=== PATIENT | female | born 1995 | race Caucasian/White ===

== ENCOUNTER 2021-07-27 20:58 | Emergency (ER) | payer BC ==
--- NOTE | 2021-07-27 21:23 | EDM.PDOC ---
<Mariah George E - Last Filed: 07/27/21 21:50> ED HPI GENERAL MEDICAL PROBLEM - General Chief Complaint: General Stated Complaint: COUGHING,RUNNING NOSE,CONGESTION Time Seen by Provider: 07/27/21 21:11 Source of Information: Reports: Patient History Limitations: Reports: No Limitations - History of Present Illness INITIAL COMMENTS - FREE TEXT/NARRATIVE: HISTORY AND PHYSICAL: History of present illness: Patient is a 26-year-old female who presents to the emergency room with complaints of nasal congestion, cough and shortness of breath x1 week. Patient denies any fever, chills, headache, change in vision, syncope or near syncope, chest pain, and back pain. Denies any abdominal pain, nausea, vomiting, diarrhea, constipation or dysuria. Has not noted any blood in urine or stool. She states she is currently trying to get and states there is a possibility of today. Patient has been eating and drinking appropriately. No recent travel or sick contacts. Review of systems: As per history of present illness and below otherwise all systems reviewed and negative. Past medical history: As per history of present illness and as reviewed below otherwise noncontributory. Surgical history: As per history of present illness and as reviewed below otherwise noncontributory. Social history: See social history for further information Family history: As per history of present illness and as reviewed below otherwise noncontributory. Physical exam: General: Well developed and well nourished 26-year-old female. Alert and orient ated x 3. Nontoxic in appearance and in no acute distress. Vital signs are stable and have been reviewed by me. Nursing notes were reviewed. HEENT: Atraumatic, normocephalic, pupils equal and reactive bilaterally, negative for conjunctival pallor or scleral icterus, mucous membranes moist, TMs normal bilaterally, throat clear, neck supple, nontender, trachea midline. No drooling or trismus noted. No meningeal signs. No hot potato voice noted. Lungs: Clear to auscultation bilaterally. No wheezes, rales, or rhonchi. Chest nontender. Normal work of breathing, no accessory muscles used. Heart: S1S2, regular rate and rhythm without overt murmur, gallops, or rubs. No JVD. No peripheral edema Abdomen: Soft, nondistended, nontender. Normoactive bowel sounds. Negative for masses or costovertebral tenderness. Skin: Intact, warm, dry. No lesions or rashes noted. Hematologic: No petechiae or purpra. Mucosa appropriate color and normal nail bed color and refill. Extremities: Atraumatic, moves all extremities per self without difficulty or deficits, negative for cords or calf pain. Neurovascular unremarkable. Neuro: Awake, alert, oriented. Cranial nerves II through XII unremarkable. Cerebellum unremarkable. Motor and sensory unremarkable throughout. Exam nonfocal. Psychiatric: Mood and affect are appropriate. Normal thought process. Answering questions appropriately. Please note that the patient was seen and evaluated during the 2019 SARS-CoV-2 novel coronavirus pandemic period. Community viral transmission is ongoing at time of this encounter and the emergency department is operating under pandemic response procedures. Medical Decision Making: Patient is a 26-year-old female who presents to the emergency room with complaints of upper respiratory symptoms. Physical exam is unremarkable. Will obtain Covid/influenza screening. We will get a urine and urine as she is attempting to get . If negative will obtain an x-ray Diagnostics: COVID, Influenza Impression: Upper respiratory illness Definitive disposition and diagnosis as appropriate pending reevaluation and review of above. Duration: Week(s): - Related Data Allergies Allergy/AdvReac Type Severity Reaction Status Date / Time Sulfa (Sulfonamide Allergy Shortness Verified 07/27/21 21:42 Antibiotics) of Breath Home Meds: Home Meds . [No Known Home Meds] 07/27/21 [History] ED ROS GENERAL - Review of Systems Review Of Systems: Comprehensive ROS is negative, except as noted in HPI. ED EXAM, GENERAL - Physical Exam Exam: See Below (See dictation) Departure - Departure Disposition: Home, Self-Care 01 Clinical Impression: Upper respiratory infection - Discharge Information Instructions: Viral Respiratory Infection, [id number] Referrals: PCP,None [Primary Care Provider] - Forms: ED Department Discharge Additional Instructions: You were seen and evaluated in ER today for signs and symptoms consistent with a viral upper respiratory infection. Your Covid and influenza test were both negative. Your chest x-ray was normal. Your oxygen level was 98 to 99% on room air here in the ER which is normal. Please make an appointment to follow-up with your family doctor. You can take [id number] guaifenesin or Ольга to help with some of your symptoms. Please return to the ER if you develop any new or concerning symptoms. The following information is given to patients seen in the emergency department who are being discharged to home. This information is to outline your options for follow-up care. We provide all patients seen in our emergency department with a follow-up referral. The need for follow-up, as well as the timing and circumstances, are variable depending upon the specifics of your emergency department visit. If you don't have a primary care physician on staff, we will provide you with a referral. We always advise you to contact your personal physician following an emergency department visit to inform them of the circumstance of the visit and for follow-up with them and/or the need for any referrals to a consulting specialist. The emergency department will also refer you to a specialist when appropriate. This referral assures that you have the opportunity for follow-up care with a specialist. All of these measure are taken in an effort to provide you with optimal care, which includes your follow-up. Under all circumstances we always encourage you to contact your private physician who remains a resource for coordinating your care. When calling for follow-up care, please make the office aware that this follow-up is from your recent emergency room visit. If for any reason you are refused follow-up, please contact the [facility] Emergency Department at and asked to speak to the emergency department charge nurse. [facility] [address] [place] [address] [place] [address] <Johnathon Shaffer - Last Filed: 07/27/21 23:03> ED HPI GENERAL MEDICAL PROBLEM - History of Present Illness INITIAL COMMENTS - FREE TEXT/NARRATIVE: 11 PM: Signout received at 10 PM. Patient's chest x-ray is unremarkable with no evidence of pneumonia. Patient's influenza and Covid test were both negative. Patient is clinically and hemodynamically stable with a pulse ox of 98% on room air. Patient does not appear to be in any acute respiratory distress at this time. Patient's lungs are clear without any wheezing rales or rhonchi. Patient's heart rate with regular rate and rhythm without any murmurs gallops or rubs. Patient will be discharged home with instructions to follow-up with her PCP for further evaluation. Patient symptoms appear to be most consistent with viral upper respiratory infection. Reassessment at the time of disposition demonstrates that the patient is in no acute distress. The patient has remained stable throughout the entire ED visit and is without objective evidence for acute process requiring urgent intervention or hospitalization. The patient is stable for discharge, counseling is provided as documented above, discussed symptomatic treatment and specific conditions for return. I have spoken with the patient/caregiver and discussed todays findings, in addition to providing specific details for the plan of care. Questions are answ ered and there is agreement with the plan. ED ROS GENERAL - Review of Systems Review Of Systems: See Below ED EXAM, GENERAL - Physical Exam Exam: See Below Course - Vital Signs Last Recorded V/S: Last Vital Signs Temp 97.8 F 07/27/21 21:42 Pulse 86 07/27/21 21:42 Resp 18 07/27/21 21:42 BP 103/61 07/27/21 21:42 Pulse Ox 97 07/27/21 21:42 - Orders/Labs/Meds Labs: Laboratory Tests 07/27/21 07/27/21 07/27/21 Range/Units 21:50 21:50 21:50 Urine Color YELLOW Urine Appearance CLEAR Urine pH 6.0 (5.0-8.0) Ur Specific [place] 1.025 (1.001-1.035) Urine Protein NEGATIVE (NEGATIVE) mg/dL Urine Glucose (UA) NEGATIVE (NEGATIVE) mg/dL Urine Ketones TRACE H (NEGATIVE) mg/dL Urine Occult Blood NEGATIVE (NEGATIVE) Urine Nitrite NEGATIVE (NEGATIVE) Urine Bilirubin NEGATIVE (NEGATIVE) Urine Urobilinogen 2.0 H (<2.0) EU/dL Ur Leukocyte Esterase NEGATIVE (NEGATIVE) Urine HCG, Qual NEGATIVE (NEGATIVE) Influenza Type A RNA NEGATIVE (NEGATIVE) Influenza Type B RNA NEGATIVE (NEGATIVE) SARS-CoV-2 RNA ([place]) NEGATIVE (NEGATIVE) Departure - Departure Time of Disposition: 23:02 Condition: Good Sepsis Event Note (ED) - Focused Exam Vital Signs: Vital Signs Temp Pulse Resp BP Pulse Ox 07/27/21 21:42 97.8 F 86 18 103/61 97
[2021-07-27 22:44] LABS: CORONAVIRUS COVID-19 NAA NEGATIVE (NEGATIVE); INFLUENZA A NAA NEGATIVE (NEGATIVE); INFLUENZA B NAA NEGATIVE (NEGATIVE)
--- NOTE | 2021-07-27 22:53 | CR ---
Indication: Cough. Technique: Single-view of the chest. Comparison: None Findings: The heart is normal in size. The lungs are clear. No infiltrate, pleural effusion, or pneumothorax is identified. Impression: No acute cardiopulmonary process Dictated by Roberta Buitrago MD @ 07/27/2021 10:51:42 PM (Electronically Signed)
== END 2021-07-27 23:34 | disposition home or self-care (01) ==
LOC: MW.ED 20:58
DX: J06.9 Acute upper respiratory infection, unspecified (principal); Z88.2 Allergy status to sulfonamides; Z20.822 Contact with and (suspected) exposure to COVID-19
CPT/HCPCS: 0240U; 71045; 81003; 81025; 99283

== ENCOUNTER 2022-04-27 05:04 | Inpatient (IN) | payer BC, OTHER ==
[2022-04-27] MEDS ORDERED: Citric Acid/Sodium Citrate Solution 30 ML Cup PO ONE (05:14)
[2022-04-27] MEDS ORDERED: Sodium Chloride 0.9% 10 ML Syringe FLUSH PRN (05:14)
[2022-04-27] MEDS ORDERED: Sodium Chloride 0.9% 20 ML SDV IV PRN (05:14)
[2022-04-27] MEDS ORDERED: Sodium Chloride 0.9% 2.5 ML Syringe FLUSH PRN (05:14)
[2022-04-27] MEDS ORDERED: Ondansetron 4 MG/2 ML SDV IVPUSH PRN ×4 (05:14→09:27)
[2022-04-27] MEDS ORDERED: ceFAZolin 2 GM in Premix Bag 1 BAG IV ONE (05:14)
[2022-04-27] MEDS ORDERED: Oxytocin/0.9 % Sodium Chloride 30 UNIT/500 ML BAG IV SCH ×2 (05:15→08:45)
[2022-04-27] MEDS ORDERED: Lactated Ringers 1,000 ML IV SCH ×3 (05:15→10:00)
[2022-04-27] MEDS ORDERED: Morphine PF 10 MG/10 ML SDV ONE (07:23)
[2022-04-27] MEDS ORDERED: fentaNYL 100 MCG/2 ML SDV ONE (07:24)
[2022-04-27] MEDS ORDERED: Ondansetron 4 MG/2 ML SDV ONE ×2 (07:47→07:51)
[2022-04-27] MEDS ORDERED: Lidocaine 2% 5 ML SDV ONE (07:47)
[2022-04-27] MEDS ORDERED: Phenylephrine 1% 10 MG/ML SDV ONE (07:49)
[2022-04-27] MEDS ORDERED: ceFAZolin 1 GM Vial ONE ×2 (07:50→07:56)
[2022-04-27] MEDS ORDERED: Ketorolac 30 MG/ML SDV ONE (07:51)
[2022-04-27] MEDS ORDERED: Ropivacaine 0.5% 5 MG/ML 30 ML SDV ONE (07:56)
[2022-04-27] MEDS ORDERED: Methylergonovine 0.2 MG/1 ML Amp IM PRN (08:39)
[2022-04-27] MEDS ORDERED: Oxytocin 10 Units/1 ML SDV IM PRN (08:39)
[2022-04-27] MEDS ORDERED: Lanolin 100% Cream 7 GM Tube TOP PRN (08:39)
[2022-04-27] MEDS ORDERED: Misoprostol 200 MCG Tab RECTAL PRN (08:39)
[2022-04-27] MEDS ORDERED: diphenhydrAMINE 50 MG/ML SDV IVPUSH PRN ×2 (08:39→09:27)
[2022-04-27] MEDS ORDERED: Bisacodyl 10 MG Supp RECTAL PRN (08:39)
[2022-04-27] MEDS ORDERED: Acetaminophen/oxyCODONE 325-5 MG Tab PO PRN ×3 (08:39→09:27)
[2022-04-27] MEDS ORDERED: Tranexamic Acid 1,000 MG in Sodium Chloride 0.9% 100 ML IV PRN (08:39)
[2022-04-27] MEDS ORDERED: Calcium Carbonate 500 MG Tab.Chew CHEW PRN (08:41)
[2022-04-27] MEDS ORDERED: Docusate Sodium 100 MG Cap PO SCH (09:00)
[2022-04-27] MEDS ORDERED: fentaNYL 50 MCG/ML SDV IVPUSH PRN (09:27)
[2022-04-27] MEDS ORDERED: Albuterol 0.083% 2.5 MG/3 ML Neb Soln NEB PRN (09:27)
[2022-04-27] MEDS ORDERED: fentaNYL 100 MCG/2 ML SDV IVPUSH PRN (09:27)
[2022-04-27] MEDS ORDERED: ePHEDrine 50 MG/ML SDV IVPUSH PRN (09:27)
[2022-04-27] MEDS ORDERED: HYDROmorphone 1 MG/ML Syringe IVPUSH PRN (09:27)
[2022-04-27] MEDS ORDERED: Metoclopramide 10 MG/2 ML SDV IVPUSH PRN (09:27)
[2022-04-27] MEDS ORDERED: Naloxone 0.4 MG/ML SDV IVPUSH PRN (09:27)
[2022-04-27] MEDS ORDERED: Morphine 4 MG/ML VIAL IVPUSH PRN (09:27)
[2022-04-27] MEDS ORDERED: Phenylephrine HCl In 0.9% NaCl 1 MG/10 ML Vial IVPUSH SCH (09:30)
[2022-04-27] MEDS: Nalbuphine HCl 10 MG/ 1ML Amp IVPUSH PRN (11:55)
[2022-04-27] MEDS: Ketorolac 30 MG/ML SDV IVPUSH SCH ×2 (15:19→21:36)
[2022-04-27] MEDS: Acetaminophen 1,000 MG in Premix Bag 1 BAG IV SCH ×2 (16:10→23:01)
[2022-04-27] MEDS: Docusate Sodium 100 MG Cap PO SCH (21:37)
[2022-04-27] MEDS: Prenatal Multivitamin with Calcium/Folic Acid/Iron Tab PO SCH (21:46)
[2022-04-27] MEDS: Ascorbic Acid 500 MG Tab PO SCH (21:46)
[2022-04-28] MEDS: Docusate Sodium 100 MG Cap PO SCH ×3 (00:42→21:25)
[2022-04-28] MEDS: Nalbuphine HCl 10 MG/ 1ML Amp IVPUSH PRN (03:47)
[2022-04-28] MEDS: Ketorolac 30 MG/ML SDV IVPUSH SCH ×3 (03:48→16:15)
[2022-04-28] MEDS: Prenatal Multivitamin with Calcium/Folic Acid/Iron Tab PO SCH (09:57)
[2022-04-28] MEDS: Ascorbic Acid 500 MG Tab PO SCH (09:57)
[2022-04-28] MEDS ORDERED: Ketorolac 30 MG/ML SDV ONE (16:09)
[2022-04-28] MEDS: Ibuprofen 800 MG Tab PO PRN (22:40)
[2022-04-29] MEDS: Ibuprofen 800 MG Tab PO PRN (06:27)
[2022-04-29] MEDS: Prenatal Multivitamin with Calcium/Folic Acid/Iron Tab PO SCH (10:33)
[2022-04-29] MEDS: Ascorbic Acid 500 MG Tab PO SCH (10:36)
[2022-04-29] MEDS: Docusate Sodium 100 MG Cap PO SCH (10:37)
== END 2022-04-29 14:00 | disposition home or self-care (01) | DRG 540 ==
LOC: MW.OB 05:04
PROVIDERS: ADMIT Obstetrics & Gynecology; ATTEND Obstetrics & Gynecology
PROC: 10D00Z1 Extraction of Products of Conception, Low, Open Approach (ICD-10-PCS; principal; 2022-04-27)
DX: O99.824 Streptococcus B carrier state complicating childbirth (principal); Z3A.39 39 weeks gestation of pregnancy; Z37.0 Single live birth; O99.02 Anemia complicating childbirth; D64.9 Anemia, unspecified; Z20.822 Contact with and (suspected) exposure to COVID-19
CPT/HCPCS: 01961; 36415; 59025; 64488; 82803; 85014; 85018; 85027; 86592; 86850; 86900; 86901; A9270-GY; J0131; J0690; J1885; J2274; J2300; J2370; J2405; J2795; J3010; J7120; U0002

== ENCOUNTER 2023-07-01 05:11 | Inpatient (IN) | payer BC ==
[2023-07-01] MEDS ORDERED: Lidocaine 2% 5 ML SDV ONE (06:48)
[2023-07-01] MEDS ORDERED: Ondansetron 4 MG/2 ML SDV ONE (06:48)
[2023-07-01] MEDS ORDERED: Dexamethasone 4 MG/ML 5 ML MDV ONE (06:48)
[2023-07-01] MEDS ORDERED: Ketorolac 30 MG/ML SDV ONE (06:49)
[2023-07-01] MEDS ORDERED: ceFAZolin 1 GM Vial ONE (06:49)
[2023-07-01] MEDS ORDERED: Ropivacaine 0.5% 5 MG/ML 30 ML SDV ONE (06:49)
[2023-07-01] MEDS ORDERED: Dexmedetomidine 200 MCG/2 ML SDV ONE (06:49)
[2023-07-01] MEDS ORDERED: Phenylephrine 1% 10 MG/ML SDV ONE (06:49)
[2023-07-01] MEDS ORDERED: Oxytocin 10 Units/1 ML SDV ONE ×2 (06:49→08:15)
[2023-07-01] MEDS ORDERED: fentaNYL 100 MCG/2 ML SDV ONE (06:50)
[2023-07-01] MEDS ORDERED: Water For Injection, Sterile 20 ML ONE (06:50)
[2023-07-01] MEDS ORDERED: Morphine PF 10 MG/10 ML SDV ONE (06:50)
[2023-07-01] MEDS ORDERED: Sodium Chloride 0.9% 2.5 ML Syringe FLUSH PRN (07:07)
[2023-07-01] MEDS ORDERED: Sodium Chloride 0.9% 20 ML SDV IV PRN (07:07)
[2023-07-01] MEDS ORDERED: ceFAZolin 2 GM in Sodium Chloride 0.9% 50 ML IV ONE (07:07)
[2023-07-01] MEDS ORDERED: Sodium Chloride 0.9% 10 ML Syringe FLUSH PRN (07:07)
[2023-07-01] MEDS ORDERED: Citric Acid/Sodium Citrate Solution 30 ML Cup PO ONE (07:07)
[2023-07-01] MEDS ORDERED: Oxytocin/0.9 % Sodium Chloride 30 UNIT/500 ML BAG IV SCH ×2 (07:15→09:00)
[2023-07-01] MEDS ORDERED: Lactated Ringers 1,000 ML IV SCH ×2 (07:15→09:00)
[2023-07-01] MEDS ORDERED: fentaNYL 100 MCG/2 ML SDV IVPUSH PRN (07:22)
[2023-07-01] MEDS ORDERED: fentaNYL 50 MCG/ML SDV IVPUSH PRN (07:22)
[2023-07-01] MEDS ORDERED: Ondansetron 4 MG/2 ML SDV IVPUSH PRN ×3 (07:22→08:55)
[2023-07-01] MEDS ORDERED: Metoclopramide 10 MG/2 ML SDV IVPUSH PRN (07:22)
[2023-07-01] MEDS ORDERED: Acetaminophen/oxyCODONE 325-5 MG Tab PO PRN ×2 (07:22→08:55)
[2023-07-01] MEDS ORDERED: ePHEDrine 50 MG/ML SDV IVPUSH PRN (07:22)
[2023-07-01] MEDS ORDERED: droPERidol 5 MG/2 ML SDV IVPUSH PRN (07:22)
[2023-07-01] MEDS ORDERED: Naloxone 0.4 MG/ML SDV IVPUSH PRN (07:22)
[2023-07-01] MEDS ORDERED: Albuterol 0.083% 2.5 MG/3 ML Neb Soln NEB PRN (07:22)
[2023-07-01] MEDS ORDERED: HYDROmorphone 1 MG/ML Syringe IVPUSH PRN (07:22)
[2023-07-01] MEDS ORDERED: Morphine 2 MG/ML SYRINGE IVPUSH PRN (07:22)
[2023-07-01] MEDS ORDERED: droPERidol 5 MG/2 ML SDV ONE (07:30)
[2023-07-01 07:34] LABS: BASOPHILS ABSOLUTE AUTO 0.03 K/uL (0.00-0.20); BASOPHILS PERCENT AUTO 0.4 % (0.0-1.0); EOSINOPHILS ABSOLUTE AUTO 0.04 K/uL (0.00-0.45); EOSINOPHILS PERCENT AUTO 0.5 % (0.0-6.0); HEMATOCRIT 28.3 % (37.0-47.0); HEMOGLOBIN 10.1 g/dL (12.0-16.0); IMMATURE GRAN ABSOLUTE AUTO 0.03 K/uL (0.00-0.05); IMMATURE GRAN PERCENT AUTO 0.4 % (0.0-0.4); LYMPHOCYTES ABSOLUTE AUTO 1.37 K/uL (1.00-4.80); LYMPHOCYTES PERCENT AUTO 16.6 % (24.0-44.0); MEAN CORPUSCULAR HEMOGLOBIN 32.3 pg (28.0-32.0); MEAN CORPUSCULAR HGB CONC 35.7 g/dL (32.0-36.0); MEAN CORPUSCULAR VOLUME 90.4 fL (83.0-99.0); MEAN PLATELET VOLUME 10.9 fL (9.4-12.3); MONOCYTES ABSOLUTE AUTO 0.42 K/uL (0.00-0.80); MONOCYTES PERCENT AUTO 5.1 % (0.0-8.0); NEUTROPHILS ABSOLUTE AUTO 6.37 K/uL (1.80-7.70); PLATELET COUNT,PLT 157 K/uL (150-400); RED BLOOD CELL COUNT 3.13 M/uL (4.10-5.30); WHITE BLOOD CELL COUNT,WBC 8.26 K/uL (3.9-11.3)
[2023-07-01] MEDS ORDERED: Tranexamic Acid 1,000 MG/10 ML Vial ONE (08:34)
[2023-07-01] MEDS ORDERED: diphenhydrAMINE 50 MG/ML SDV IVPUSH PRN (08:55)
[2023-07-01] MEDS ORDERED: Methylergonovine 0.2 MG/1 ML Amp IM PRN (08:55)
[2023-07-01] MEDS ORDERED: Lanolin 100% Cream 7 GM Tube TOP PRN (08:55)
[2023-07-01] MEDS ORDERED: Misoprostol 200 MCG Tab RECTAL PRN (08:55)
[2023-07-01] MEDS ORDERED: Bisacodyl 10 MG Supp RECTAL PRN (08:55)
[2023-07-01] MEDS ORDERED: Oxytocin 10 Units/1 ML SDV IM PRN (08:55)
[2023-07-01 09:09] LABS: PH,UMBILICAL ARTERIAL 7.253 (7.18-7.38); PH,UMBILICAL VENOUS 7.327 (7.25-7.45)
[2023-07-01] MEDS: Docusate Sodium 100 MG Cap PO SCH ×2 (10:43→20:58)
[2023-07-01] MEDS ORDERED: Acetaminophen 1,000 MG in Premix Bag 1 BAG IV ONE (11:00)
[2023-07-01] MEDS: Ketorolac 30 MG/ML SDV IVPUSH SCH ×2 (13:04→18:59)
[2023-07-01] MEDS: diphenhydrAMINE 50 MG/ML SDV IVPUSH PRN (21:00)
[2023-07-02] MEDS: Ketorolac 30 MG/ML SDV IVPUSH SCH ×2 (01:09→06:49)
[2023-07-02] MEDS: diphenhydrAMINE 50 MG/ML SDV IVPUSH PRN ×2 (01:37→09:37)
[2023-07-02 06:50] LABS: HEMATOCRIT 25.7 % (37.0-47.0)
[2023-07-02] MEDS: Docusate Sodium 100 MG Cap PO SCH ×2 (09:38→21:03)
[2023-07-02] MEDS: diphenhydrAMINE 25 MG Cap PO PRN ×2 (13:35→19:58)
[2023-07-02] MEDS: Acetaminophen/oxyCODONE 325-5 MG Tab PO PRN ×2 (15:02→19:59)
[2023-07-02] MEDS: Ibuprofen 800 MG Tab PO PRN (16:10)
[2023-07-03] MEDS: Acetaminophen/oxyCODONE 325-5 MG Tab PO PRN ×4 (00:05→19:56)
[2023-07-03] MEDS: Ibuprofen 800 MG Tab PO PRN ×2 (01:51→09:15)
[2023-07-03] MEDS: Docusate Sodium 100 MG Cap PO SCH ×2 (09:13→21:23)
[2023-07-04] MEDS: Acetaminophen/oxyCODONE 325-5 MG Tab PO PRN ×2 (02:09→10:04)
[2023-07-04] MEDS: Ibuprofen 800 MG Tab PO PRN (02:10)
[2023-07-04] MEDS: Docusate Sodium 100 MG Cap PO SCH (08:30)
== END 2023-07-04 14:25 | disposition home or self-care (01) | DRG 540 ==
LOC: MW.OB 05:11
PROVIDERS: ADMIT Obstetrics & Gynecology; ATTEND Obstetrics & Gynecology
PROC: 10D00Z1 Extraction of Products of Conception, Low, Open Approach (ICD-10-PCS; principal; 2023-07-01 08:00)
DX: O34.211 Maternal care for low transverse scar from previous cesarean delivery (principal); Z37.0 Single live birth; O99.824 Streptococcus B carrier state complicating childbirth; Z3A.39 39 weeks gestation of pregnancy
CPT/HCPCS: 36415; 82803; 85014; 85018; 85025; 86592; 86850; 86900; 86901; A9270-GY; J0131; J0690; J1100; J1200; J1790; J1885; J2274; J2371; J2405; J2590; J2795; J3010; J3490; J7120

== ENCOUNTER 2025-03-08 14:51 | Emergency (ER) | payer BC ==
[2025-03-08] MEDS: diphenhydrAMINE 50 MG/ML SDV IVPUSH ONE (15:10)
[2025-03-08 15:13] LABS: BASOPHILS ABSOLUTE AUTO 0.02 K/uL (0.00-0.20); BASOPHILS PERCENT AUTO 0.3 % (0.0-1.0); EOSINOPHILS ABSOLUTE AUTO 0.01 K/uL (0.00-0.45); EOSINOPHILS PERCENT AUTO 0.1 % (0.0-6.0); IMMATURE GRAN ABSOLUTE AUTO 0.01 K/uL (0.00-0.05); IMMATURE GRAN PERCENT AUTO 0.1 % (0.0-0.4); LYMPHOCYTES ABSOLUTE AUTO 1.09 K/uL (1.00-4.80); LYMPHOCYTES PERCENT AUTO 14.2 % (24.0-44.0); MEAN PLATELET VOLUME 9.8 fL (9.4-12.3); MONOCYTES ABSOLUTE AUTO 0.14 K/uL (0.00-0.80); MONOCYTES PERCENT AUTO 1.8 % (0.0-8.0); NEUTROPHILS ABSOLUTE AUTO 6.42 K/uL (1.80-7.70); NEUTROPHILS PERCENT AUTO 83.5 % (41.0-71.0); NRBC ABSOLUTE 0.00 K/uL (0.00-0.02); NRBC PERCENT 0.0 /100WBC (0.0-0.2); PLATELET COUNT,PLT 237 K/uL (150-400); RED BLOOD CELL COUNT 4.02 M/uL (4.10-5.30); WHITE BLOOD CELL COUNT,WBC 7.69 K/uL (3.9-11.3)
[2025-03-08 15:35] LABS: A/G RATIO 1.2 (0.9-1.6); ALANINE AMINOTRANSFERASE,ALT 62.0 IU/L (14-63); ASPARTATE AMNIOTRANSFERASE,AST 46.0 IU/L (15-37); BILIRUBIN TOTAL 1.1 mg/dL (0.2-1.0); BLOOD UREA NITROGEN,BUN 10.0 mg/dL (7.0-18.0); CARBON DIOXIDE,CO2 24.3 mmol/L (21.0-32.0); CHLORIDE,CL 103.0 mmol/L (98-107); CREATININE 0.8 mg/dL (0.6-1.0); EST CRCL DRUG DOSING (CG) 92.53 mL/min; GLUCOSE RANDOM 152.0 mg/dL (74-106); POTASSIUM,K 3.7 mmol/L (3.5-5.1); PROTEIN TOTAL,TP 7.6 g/dL (6.4-8.2); SODIUM,NA 138.0 mmol/L (136-145)
[2025-03-08 15:36] LABS: ESTIMATED GFR 102.0 mL/min (>60)
== END 2025-03-08 16:43 | disposition home or self-care (01) ==
LOC: MW.ED 14:51
DX: R22.0 Localized swelling, mass and lump, head (principal); T38.0X5A Adverse effect of glucocorticoids and synthetic analogues, initial encounter
CPT/HCPCS: 36415; 80053; 85025; 96361; 96374; 99284; J1200; J7040; 99283